=== PATIENT | female | born 1995 | race Caucasian/White ===

== ENCOUNTER 2016-10-03 12:22 | Emergency (ER) | payer OTHER ==
[~2016-10-03] VITALS: Ht 157.5 cm; Wt 61.8 kg
[2016-10-03 12:28] VITALS: BP 95/56; PULSE 80; TEMP 36.7; O2SAT 96; Ht 157.5 cm; Wt 61.8 kg
--- NOTE | 2016-10-03 12:40 | EMERGENCY ROOM VISIT NOTE ---
ED Visit Note First contact with patient: 12:32 CHIEF COMPLAINT: Right leg laceration HISTORY OF PRESENT ILLNESS: This 21-year-old female patient presents to the emergency department ambulatory after cutting the right anterior thigh when she was trying to hang a picture and she dropped the piece of glass in the corner cut her leg. The bleeding has stopped. Denies weakness or numbness of the leg, foot or toes. The patient denies any pain. The patient denies any other injuries. The patient's Tetanus shot is up to date. REVIEW OF SYSTEMS: A 6 system review of systems was completed with positives and pertinent negatives listed in the HPI. ALLERGIES: No known drug allergies MEDICATIONS: Lexapro PMH: Anxiety SOCIAL HISTORY: The patient is a student. PHYSICAL EXAM: Vital Signs: Reviewed Nurse's notes, vital signs stable. GENERAL : This is a 21-year-old female, in no acute distress, well-developed, well- nourished. SKIN: There is a 3 cm long laceration on the anterior aspect of the right thigh. The edges gape apart with traction. There is no foreign material in the wound and it looks clean. There is no significant bleeding. No deep structures such as tendons, bones, or nerves are seen in the base of the wound. Normal strength and movement of the leg, foot and toes. Capillary refill less than 2 seconds. Normal sensation to light and sharp touch. EMERGENCY DEPARTMENT COURSE: I examined the patient. Using sterile technique the wound was cleaned with Betadine. The area was sterilely draped. 3 ml of 1% buffered lidocaine was used to anesthetize the laceration on the right leg. Once the patient was numb, the wound was copiously irrigated under pressure with sterile saline. The wound was explored and was as described above. The laceration was repaired using 4 simple interrupted 5-0 nylon sutures with the wound edges being well approximated. The patient tolerated the procedure well. The bleeding stopped. The area was cleaned with sterile saline and dressed with bacitracin ointment and bandage. The patient was discharged home in good condition. DISCHARGE INSTRUCTIONS & TREATMENT: Keep wound clean and dry. Do not allow any crusting or dried blood to accumulate on sutures. If this occurs, use a 1:1 solution of hydrogen peroxide/water on a Q-tip to clean the wound. Use an antibiotic ointment for 3-4 days, then let wound dry. Suture removal in 10-12 days. Return sooner for any signs of infection (increasing redness, swelling, drainage). Ice and elevate for swelling and pain. Ibuprofen 600 mg every 6 hrs for pain. Keep covered when in sun until sutures removed then SPF 50 or higher for one year. Vitamin E oil if desired two weeks after suture removal for reduction of scar. Allergies Coded Allergies: No Known Allergies (Unverified , 10/03/16) Vital Signs Date Time Temp Pulse Resp B/P (MAP) Pulse Ox O2 Delivery O2 Flow Rate FiO2 10/03/16 12:28 36.7 80 20 95/56 96 Room Air Departure Information Impression Primary Impression: Laceration Dispostion Home / Self-Care Condition GOOD Referrals No Doctor, Assigned (PCP) Patient Instructions ED Laceration All, On License Of [facility] Additional Instructions Keep wound clean and dry. Do not allow any crusting or dried blood to accumulate on sutures. If this occurs, use a 1:1 solution of hydrogen peroxide/ water on a Q-tip to clean the wound. Use an antibiotic ointment for 3-4 days, then let wound dry. Suture removal in 10-12 days. Return sooner for any signs of infection (increasing redness, swelling, drainage). Ice and elevate for swelling and pain. Ibuprofen 600 mg every 6 hrs for pain. Keep covered when in sun until sutures removed then SPF 50 or higher for one year. Vitamin E oil if desired two weeks after suture removal for reduction of scar.
[2016-10-03] MEDS ORDERED: XYLOCAINE 1%/SOD BICARB 20 ML VIAL INFIL ONE (12:45)
== END 2016-10-03 13:28 | disposition home or self-care (01) ==
LOC: C.EDB 12:24 → C.EDD 13:28
DX: S81.811A Laceration without foreign body, right lower leg, initial encounter (principal); F41.9 Anxiety disorder, unspecified; Z79.899 Other long term (current) drug therapy; W25.XXXA Contact with sharp glass, initial encounter; Y93.E9 Activity, other interior property and clothing maintenance; Y92.009 Unspecified place in unspecified non-institutional (private) residence as the place of occurrence of the external cause

== ENCOUNTER 2016-10-14 08:35 | Emergency (ER) | payer OTHER ==
[~2016-10-14] VITALS: Ht 160 cm; Wt 61.8 kg
[2016-10-14 08:38] VITALS: BP 116/74; PULSE 72; TEMP 36.8; O2SAT 97; Ht 160 cm; Wt 61.8 kg
--- NOTE | 2016-10-14 17:52 | EMERGENCY ROOM VISIT NOTE ---
ED Visit Note First contact with patient: 08:42 CHIEF COMPLAINT: Suture removal. HISTORY OF PRESENT ILLNESS: Ms. Pierce is a 21-year-old white female who ambulates into the ED requesting suture removal. She reports she sustained a full-thickness laceration to the anterior aspect for a right thigh. She was seen in this ED and had sutures placed for wound closure. She reports since being discharge there has been no pain, swelling, redness, or drainage from the wound and he feels like the laceration is healing well. PHYSICAL EXAM: Vital Signs: Date Time Temp Pulse Resp B/P (MAP) Pulse Ox O2 Delivery O2 Flow Rate FiO2 10/14/16 08:38 36.8 72 16 116/74 97 Room Air General: 21-year-old white female in no acute distress, nontoxic-appearing, afebrile and hemodynamically stable. Neurological: Awake, alert and oriented 3. Answering questions appropriately and following commands. Normal gait. Skin: Warm dry and pink. Anterior Thigh: Clean dry and intact wound on the anterior mid thigh without signs of infection (erythema, swelling, tenderness, purulent drainage). ED COURSE: Patient is assessed as noted above. 4 sutures were removed without any difficulty and there was no separation of the wound edges. Patient was educated about today's findings and instructed on her treatment plan ; she verbalizes understanding and agreement with this plan. DISPOSITION: Patient discharged home in stable condition. CLINICAL IMPRESSION: Suture removal; Well healing laceration. PLAN: Patient was encouraged to continue her current wound care treatment plan and watch for signs of infection. Patient was encouraged return ED for any signs of insect infection or any new/ concerning symptoms.
== END 2016-10-14 08:55 | disposition home or self-care (01) ==
LOC: C.EDB 08:36 → C.EDA 08:55
DX: Z48.02 Encounter for removal of sutures (principal)